=== PATIENT | female | born 1960 | race Caucasian/White ===

== ENCOUNTER 2017-02-07 17:26 | Observation (INO) | payer OTHER ==
--- NOTE | ~2017-02-07 | EKG ---
PATIENT: DAYRON RIVERA UNIT #: [id number] Ventricular Rate: 78 BPM Atrial Rate: 78 BPM P-R Interval: 174 ms QRS Duration: 78 ms Q-T Interval: 396 ms QTC Calculation(Bezet): 451 ms P [place]: 78 degrees Calculated R [place]: 62 degrees Calculated T [place]: 76 degrees Diagnosis Line: Normal sinus rhythm Diagnosis Line: Right atrial enlargement Diagnosis Line: Poor R wave progression questionable lead position Diagnosis Line: or body habitus Diagnosis Line: Nonspecific ST abnormality Baseline wander Diagnosis Line: Otherwise normal ECG Diagnosis Line: When compared with ECG of 21-SEP-2016 14:34, Diagnosis Line: No significant change was found Diagnosis Line: Confirmed by TORO ANTONIO MD ([id number]) on 02/08/2017 Diagnosis Line: 8:31:32 AM INTERPRETING MD: MARISELA VILLALOBOS
--- NOTE | ~2017-02-07 | HP ---
Unit #: [id number] #: [id number] Patient: DAYRON RIVERA [id number] [address] [address] [id number] I MR#: [id number] NAME: DAYRON RIVERA ROOM: 35009 Age: 56 Sex: F Admission Date: 02/07/2017 : 1960 Attending Physician: Je Roth M.D. Primary Care Physician: Ruby Avitia Aprn HISTORY AND PHYSICAL CHIEF COMPLAINT Chest pain. HISTORY OF PRESENT ILLNESS The patient is a 56-year-old female with history of diabetes, ischemic cardiomyopathy, COPD, presented to the emergency room complaining of the right-sided chest pain. The patient stated the patient was coughing for the last few days and has seen the PCP yesterday and started on Augmentin. The patient stated the patient used to get the intermittent pain but the pain was so severe that she could not take it anymore so she presented to the emergency room for the chest pain. The patient is being admitted for the above reasons. Denies any fever, chills, or trauma. PAST MEDICAL HISTORY 1. History of diabetes. 2. History of foot ulcer with foot infection with osteomyelitis requiring left fourth and fifth toe amputations. 3. Right foot MTP ulcer. 4. Pxz-MK-lgbnoyhrn myocardial infarction. 5. COPD with ongoing tobacco use. 6. Hepatic steatosis. 7. Hepatomegaly. PAST SURGICAL HISTORY 1. . 2. Cholecystectomy. 3. BTL. 4. D and C. 5. Multiple foot surgeries. 6. EGD. HOME MEDICATIONS 1. Aspirin. 2. Metoprolol. 3. Imdur. 4. Calcium. 5. Vitamin. 6. Ferrous sulfate. 7. Pantoprazole. 8. Nitrostat. 9. NovoLog. 10. Claritin. 11. Plavix. 12. Tramadol. Unit #: [id number] #: [id number] Patient: DAYRON RIVERA 13. Touvijay ZuritaoSTAR. ALLERGIES 1. Lisinopril. 2. Bactrim. SOCIAL HISTORY The patient lives with her youngest son. She smokes one-eighth of the pack per day and is trying to quit smoking. Does not drink alcohol. FAMILY HISTORY Positive for coronary artery disease, hypertension, malignancy. REVIEW OF SYSTEMS A 14-point review of systems performed and only pertinent positive findings are described above, remaining are negative. PHYSICAL EXAMINATION VITAL SIGNS: Temperature 98, pulse 79, respiratory rate 20, blood pressure 108/57, saturating 98% at room air. GENERAL: Patient is lying on the bed not in acute distress. HEENT: Atraumatic, normocephalic. Pupils equal, round, and reactive to light and accommodation. Extraocular movements are intact. NECK: Supple. LUNGS: Decreased air entry at the bases. No rhonchi, no wheezing. HEART: Regular rate and rhythm. ABDOMEN: Soft, positive bowel sounds. EXTREMITIES: Clean amputation site of the fourth and fifth toes of the left foot. No ulcers on the foot. NEUROLOGIC: Alert, awake, oriented. No gross focal motor deficit. DIAGNOSTIC STUDIES LABORATORY: pH 7.42, pCO2 of 41, pO2 of 56, bicarb 27, oxygen saturation 85.3. Glucose 205, BUN 21, creatinine 1, sodium 141, potassium 4.2, chloride 108, bicarb 28, calcium 8.6, total protein 6.1, albumin 2.6, AST 17, ALT 15, alkaline phosphatase 105. INR 1. Troponin less than 0.05. WBC 11.7, hemoglobin 12.8, hematocrit 39, platelets 206. IMAGING: Chest x-ray shows portable view of the chest demonstrates pulmonary hyperinflation, hyperlucency and coarse parenchymal markings compatible with underlying emphysema and fibrosis. No acute airspace disease or consolidation. No effusions. Heart and mediastinum unremarkable. CARDIOVASCULAR: EKG shows normal sinus rhythm with a right atrial enlargement and nonspecific ST changes. ASSESSMENT AND PLAN 1. Chest pain. 2. History of bronchitis. 3. History of chronic obstructive pulmonary disease. 4. Hypoxia. PLAN 1. Admit patient as observation with telemetry. 2. Check serial troponins. 3. Echocardiogram. 4. Continue with DuoNeb. Unit #: [id number] #: [id number] Patient: DAYRON RIVERA 5. Repeat the labs again in the morning. 6. Further recommendations will follow. Dictated by Kota Díaz TD: 02/07/2017 20:09 JOB #: [id number] HISTORY AND PHYSICAL Page 1 of 1 X X HISTORY AND PHYSICAL
--- NOTE | ~2017-02-07 | CR72 ---
[facility] A Service of [facility] & [facility] RADIOLOGY TEXT RESULTS PATIENT: DAYRON RIVERA LOCATION: [place] [address] : [birth year] UNIT #: [id number] AGE: [address]: Qing Dunbar MD SEX: F ORDER DR: [id number] [facility] [address] [place], [place] [address] [id number] E MR#: [id number] Acc #: [id number] NAME: DAYRON RIVERA : 1960 SEX: F STUDY DATE/TIME: 02/07/2017 16:18 UNIT: [facility] ROOM: STUDY DESCRIPTION: CR Chest Single View Portable Attending Physician: Caroline Stack M.D. Ordering Physician: Ed Brandan Krishna M.D. Primary Care Physician: Ruby Avitia Aprn MEDICAL IMAGING REPORT This report is preliminary unless electronic signature is present EXAM Portable chest HISTORY Chest pain COMPARISON 09/21/2016 FINDINGS Portable view of the chest demonstrates pulmonary hyperinflation, hyperlucency and coarse parenchymal markings compatible with underlying emphysema and fibrosis. No acute airspace disease or consolidation. No effusions. Heart and mediastinum unremarkable. Osseous structures unremarkable for age. No pneumothorax. Dictated by... Yahaira Graham M.D. THIS IS AN ELECTRONICALLY VERIFIED REPORT Yahaira Graham M.D. at 02/08/2017 5:29 PM MANUELITO/christiane TD: 02/07/2017 18:46 JOB #: [id number] MEDICAL IMAGING REPORT Page 1 of 1 COPY
--- NOTE | ~2017-02-07 | DS ---
Unit #: [id number] #: [id number] Patient: DAYRON RIVERA [id number] [address] [address] [id number] I MR#: [id number] NAME: DAYRON RIVERA ROOM: 55 Age: 56 Sex: F Admission Date: 02/07/2017 : 1960 Discharge Date: 02/09/2017 Attending Physician: Qing Dunbar M.D. Primary Care Physician: Ruby Avitia, Aircraft Body Repairer DISCHARGE SUMMARY DISCHARGE DIAGNOSES 1. Acute chronic obstructive pulmonary disease with exacerbation. 2. Acute bronchitis. 3. Chest pain, atypical, noncardiac secondary to chronic obstructive pulmonary disease. 4. Acute hypoxic respiratory failure. 5. Diabetes mellitus type 1, uncontrolled. 6. Foot ulcer with osteomyelitis, requiring left fourth and fifth toe amputations. 7. History of myocardial infarction. 8. Smoking. 9. Hepatic steatosis. 10. Hepatomegaly. 11. Chronic systolic heart failure, ejection fraction 30%-35%. CONSULTANTS None. PROCEDURES PERFORMED None. DIAGNOSTIC DATA LABORATORY: Glucose 273. Troponins negative. ABG shows pH 7.42, carbon dioxide 41, oxygen 56. IMAGING: Chest x-ray shows emphysema. No infiltrates. ALLERGIES Lisinopril, sulfamethoxazole, trimethoprim. DISCHARGE MEDICATIONS 1. Albuterol nebulizer q.4 h. p.r.n. shortness of breath. 2. Neurontin 100 mg at bedtime. 3. Claritin 10 mg daily. 4. Metoprolol 50 mg p.o. b.i.d. 5. Lipitor 40 mg daily. 6. Insulin Toujeo 35 units subcutaneous q.8 a.m. 7. Humalog sliding scale morning and evening. 8. Ferrous sulfate 325 mg p.o. daily. 9. Reglan 5 mg p.o. b.i.d. 10. Aspirin 81 mg daily. 11. Plavix 75 mg daily. 12. Protonix 40 mg daily. 13. Imdur 30 mg daily. Unit #: [id number] #: [id number] Patient: DAYRON RIVERA 14. Nitrostat 0.4 mg sublingual p.r.n. chest pain. 15. Vitamin D 2000 units p.o. weekly. 16. Symbicort 160 mcg 1 puff inhalation b.i.d. HOSPITAL COURSE The patient is a 56 year old admitted because of chest pain. Acute chronic obstructive pulmonary disease with exacerbation with acute bronchitis: The patient was started on duo-nebs. Prednisone was given. Her breathing is better. The patient will be discharged on albuterol and Symbicort. No prednisone because her lungs are better, no wheezing. Also, her sugars are uncontrolled on prednisone. Chest pain: Atypical, secondary to chronic obstructive pulmonary disease. Troponins are negative. EKG normal. Diabetes mellitus type 1: Uncontrolled. Continue with insulin. She has peripheral neuropathy and gastroparesis. Acute hypoxic respiratory failure from chronic obstructive pulmonary disease: Resolved. Smoking: Advised to quit. DISPOSITION The patient will be discharged home. FOLLOWUP Follow up with family physician in one week time. Dictated by... Kota Ding/inocente TD: 02/09/2017 11:21 JOB #: [id number] CC: Ruby Avitia Aprn DISCHARGE SUMMARY Page 1 of 1 X Qing Dunbar MD X DISCHARGE SUMMARY
[2017-02-07 15:48] LABS: BASOPHIL# 0.1 X10e3 (0-0.3); EOSINOPHIL# 0.2 X10e3 (0-0.7); EOSINOPHIL% 1.5 % (0.0-7.0); HEMOGLOBIN 12.8 gm/dL (12.0-16.0); LYMPHOCYTE% 26.1 % (17.0-45.0); MEAN CELL VOLUME 87.4 FL (83-96); MEAN CORPUSCULAR HEMOGLOBIN 28.8 PG (28-34); MEAN PLATELET VOLUME 8.3 FL (6.5-11.5); MONOCYTE# 0.9 X10e3 (0-1.0); NEUTROPHIL# 7.4 X10e3 (1.5-7.1); NEUTROPHIL% 63.4 % (40-75); PLATELET COUNT 296 X10e3 (140-420); RED BLOOD COUNT 4.46 X10e (3.90-5.30); RED CELL DISTRIBUTION WIDTH 12.7 % (11.0-15.5); WHITE BLOOD COUNT 11.7 X10e3 (4.0-10.5)
[2017-02-07 15:54] LABS: DIFF IND NO
[2017-02-07 15:55] LABS: PARTIAL THROMBOPLASTIN TIME 25.2 SECONDS (23.5-31.3); PROTHROMBIN TIME (PATIENT) 10.9 SECONDS (9.6-11.5)
[2017-02-07 16:08] LABS: ALBUMIN SERUM 2.6 g/dL (3.5-5.0); BILIRUBIN, DIRECT 0.1 mg/dL (0.0-0.2); BILIRUBIN,INDIRECT 0.3 mg/dL (0.0-0.9); BILIRUBIN,TOTAL 0.4 mg/dL (0.2-2.0); CALCIUM SERUM 8.6 mg/dL (8.4-10.2); GLOM FILT RATE Estimated 63.8 mL/min (>60); POTASSIUM 4.2 mmol/L (3.5-5.1); PROTEIN TOTAL SERUM 6.1 g/dL (6.0-8.3)
[2017-02-07 16:54] LABS: POC - CKMB <1.0 ng/mL (0.0-7.9); POC - TROPONIN <0.05 ng/mL (<=0.05)
[~2017-02-07 17:26] MED LIST: ACETAMINOPHEN PO; ACETAMINOPHEN500 M4 PO; ACID CONTROL20 MG PO; ADVIL200 M2 PO; ALBUTEROL17 G1 IH; ALBUTEROL17 GM; ALBUTEROL17 GM INH; ASPIRIN EC81 M1 PO; ASPIRIN81 MG PO; ATARAX PO; B COMPLEX1 CA1 PO; BACTRIM DS TABL1 TA1 PO; BACTROBAN22 GM TOP; CALCIUM 5001 TAB PO; CEPHALEXIN500 M1 PO; CIPRO PO; CLARITIN10 M3 PO; CLEOCIN HCL300 M1 PO; COLACE 100 MG PO; DOXYCYCLINE HY100 M3 PO; FERRO-TIME325 MG PO; FERROUS SULFATE PO; FLEXERIL PO; FLEXERIL10 M1 PO; FLEXERIL10 MG PO; FUROSEMIDE40 MG PO; GABAPENTIN300 M2 PO; HUMALOG100 U/M2; HUMALOG100 U/M2 SUBQ; HUMALOG100 U/ML; HUMULIN 70100 UNITS/ INJ; HUMULIN N VIAL SUBQ; HUMULIN N100 U/ML SQ; HUMULIN N100 U/ML SUBQ; HUMULIN R100 U/ML; HUMULIN R100 U/ML SUBQ; IBUPROFEN100 MG PO; IMDUR-ER30 M1 PO; IRON TABLETS1 TAB PO; IRON325 ( 652 PO; KEFLEX PO; KEFLEX500 M1 PO; KEFLEX500 MG PO; KETOPROFEN PO; LANTUS100 U/ML SUBQ; LANTUS100 UNITS/ SUBQ; LASIX PO; LEVAQUIN750 MG PO; LISINOPRIL20 MG PO; MEDROL PO; METOPROLOL TART25 MG PO; MORGIDOX100 MG PO; NAPROSYN500 MG PO; NAPROXEN PO; NEURONTIN 300 MG PO; NEURONTIN300 MG PO; NICOTINE PATCH 21 MG TD; NICOTINE T1 PATCH .2 TOP; NICOTINE TRANSD14 MG EXT; NITROGLYGERIN0.4 MG SL; NITROSTAT0.4 MG SL; NOVOLIN N100 U/ML; NOVOLIN N100 U/ML INJ; NOVOLIN N100 U/ML SUBQ; NOVOLIN N100 UNIT/1 SQ; NOVOLIN N100 UNIT/1 SUBQ; NOVOLIN R100 U/ML; NOVOLIN R100 U/ML INJ; NOVOLIN R100 U/ML SUBQ; NOVOLIN R100 UNITS/ INJ; NOVOLIN R100 UNITS/ SUBQ; NOVOLOG100 U/M2 SUBQ; NOVOLOG100 U/ML; NOVOLOG100 U/ML SUBQ; NOVOLOG100 UNITS/ INJ; PANTOPRAZOLE SO40 MG PO; PERCOCET PO; PLAVIX PO; POLYSPORIN15 GM EXT; PREDNISONE PO; REGLAN5 MG PO; TOPROL XL50 MG PO; TOUJEO SOL300 UNIT/1 SUBQ; TRAMADOL HCL50 M1 PO; TYLENOL 325 MG PO; TYLENOL325 M1 PO; ULTRAM PO; VANCOMYCIN IV; VIBRAMYCIN100 M1 PO; VICODIN 5/500 T1 TAB PO; VIT B-12 PO; VITAMIN D1000 UNIT PO; VITAMIN D2000 UNIT PO; ZANTAC PO; ZETIA PO; ZITHROMAX; ZOCOR PO; ZOCOR20 MG PO; ZOFRAN ODT4 MG PO
[2017-02-07 17:29] LABS: POC - TROPONIN <0.05 ng/mL (<=0.05)
[2017-02-07 19:30] LABS: ARTERIAL BLD GAS O2 SATURATION 85.3 % (90.0-100.0); ARTERIAL BLOOD GAS ART SITE RIGHT BRACHIAL; ARTERIAL BLOOD GAS CARBOXY HB 4.9 %sat (0.0-9.0); ARTERIAL BLOOD GAS DELIVERY ROOM AIR; ARTERIAL BLOOD GAS HCO3 27.1 mmol/L; ARTERIAL BLOOD GAS MET HB 0.7 %sat (0.0-2.0); ARTERIAL BLOOD GAS PCO2 41.2 mmHg (35.0-45.0); ARTERIAL BLOOD GAS pH 7.426 (7.350-7.450); ARTERIAL DRAW? YES
[2017-02-07] MEDS ORDERED: HUMALOG100 UNIT/1 SUBQ (20:48)
[2017-02-08] MEDS ORDERED: LIPITOR40 MG PO (00:15)
[2017-02-08] MEDS ORDERED: REGLAN5 MG PO (00:15)
[2017-02-08] MEDS ORDERED: NEURONTIN100 MG PO (00:16)
[2017-02-08] MEDS ORDERED: ALBUTEROL2.5 MG/3 M NEB (00:21)
[2017-02-08 02:38] LABS: HEMATOCRIT 36.7 % (35.0-45.0); MEAN CELL VOLUME 89.2 FL (83-96); MEAN CORPUSCULAR HEMOGLOBIN 29.1 PG (28-34); MEAN CORPUSCULAR HGB CONC 32.6 g/dL (30-36); MEAN PLATELET VOLUME 8.5 FL (6.5-11.5); RED BLOOD COUNT 4.12 X10e (3.90-5.30); RED CELL DISTRIBUTION WIDTH 12.8 % (11.0-15.5); WHITE BLOOD COUNT 8.4 X10e3 (4.0-10.5)
[2017-02-08 03:22] LABS: BUN/CREATININE RATIO 20.9; CALCIUM SERUM 8.4 mg/dL (8.4-10.2); CREATININE SERUM 1.1 mg/dL (0.6-1.4); GLOM FILT RATE Estimated 56.9 mL/min (>60); POTASSIUM 4.1 mmol/L (3.5-5.1)
[2017-02-09] MEDS ORDERED: SYMBICORT INH (11:53)
== END 2017-02-09 12:58 | disposition home or self-care (01) ==
LOC: CED 17:26 → CEDOF 19:35 → C5B 22:24
PROVIDERS: Emergency Medicine; Internal Medicine
DX: J44.1 Chronic obstructive pulmonary disease with (acute) exacerbation (principal); J20.9 Acute bronchitis, unspecified; J44.0 Chronic obstructive pulmonary disease with (acute) lower respiratory infection; R07.89 Other chest pain; J96.01 Acute respiratory failure with hypoxia; E10.65 Type 1 diabetes mellitus with hyperglycemia; E10.42 Type 1 diabetes mellitus with diabetic polyneuropathy; Z79.4 Long term (current) use of insulin; I50.22 Chronic systolic (congestive) heart failure; Z89.422 Acquired absence of other left toe(s); I25.2 Old myocardial infarction; F17.200 Nicotine dependence, unspecified, uncomplicated; R16.0 Hepatomegaly, not elsewhere classified; K76.0 Fatty (change of) liver, not elsewhere classified
CPT/HCPCS: 36415; 36600; 71010; 80048; 80076; 82553; 82803; 82947; 84484; 85025; 85027; 85610; 85730; 93005; 93306; 94640; 94664; 94760; 96372; 99285; G0378; J1650; J1815

== ENCOUNTER 2017-02-27 12:29 | Emergency (ER) | payer OTHER ==
[~2017-02-27 12:29] MED LIST changes: +ALBUTEROL2.5 MG/3 M NEB; +HUMALOG100 UNIT/1 SUBQ; +LIPITOR40 MG PO; +NEURONTIN100 MG PO; +SYMBICORT INH
== END 2017-02-27 13:32 | disposition home or self-care (01) ==
LOC: CFTX 12:29 → CED 12:29 → CFTX 13:27
DX: S61.012A Laceration without foreign body of left thumb without damage to nail, initial encounter (principal); E11.9 Type 2 diabetes mellitus without complications; Z79.4 Long term (current) use of insulin; I10 Essential (primary) hypertension; K21.9 Gastro-esophageal reflux disease without esophagitis; Z88.2 Allergy status to sulfonamides; Z88.8 Allergy status to other drugs, medicaments and biological substances; Z79.899 Other long term (current) drug therapy; W01.0XXA Fall on same level from slipping, tripping and stumbling without subsequent striking against object, initial encounter; Y92.009 Unspecified place in unspecified non-institutional (private) residence as the place of occurrence of the external cause
CPT/HCPCS: 12001; 99283

== ENCOUNTER 2017-04-21 15:26 | Emergency (ER) | payer OTHER ==
[~2017-04-21] VITALS: Ht 175.3 cm; Wt 86.2 kg
--- NOTE | ~2017-04-21 | CR127 ---
[facility] A Service of [facility] & [facility] RADIOLOGY TEXT RESULTS PATIENT: DAYRON RIVERA LOCATION: [facility] : [birth year] UNIT #: [id number] AGE: [address]: Ana Maria Jeffries APRN SEX: F ORDER DR: [id number] [facility] [address] [facility]. [place], [place] [address] [id number] E MR#: [id number] Acc #: [id number] NAME: DAYRON RIVERA : 1960 SEX: F STUDY DATE/TIME: 04/21/2017 17:11 UNIT: [facility] ROOM: STUDY DESCRIPTION: CR Foot Complete Min 3 View Rt Attending Physician: Ana Maria Jeffries A.P.R.N. Ordering Physician: Ana Maria Jeffries A.P.R.N. Primary Care Physician: Ruby Avitia Aprn MEDICAL IMAGING REPORT This report is preliminary unless electronic signature is present EXAM Right foot, 3 views. HISTORY Foot pain for 3 weeks. Twisting injury yesterday. FINDINGS Three views of the right foot demonstrate moderate degenerative arthritis at the first MTP joint. Moderate soft tissue swelling of the forefoot. Small plantar calcaneal spur. Partial absence of the distal metaphysis, proximal phalanx third digit, could be secondary to chronic post-traumatic change or bone resorption or destruction. Correlation to physical exam findings and history in this regard is recommended. No displaced fracture. IMPRESSION 1. Mild soft tissue swelling in the forefoot. 2. No fracture. 3. Partial bony absence of the distal metaphysis of the proximal phalanx of the third toe could be chronic and secondary to old trauma. Considerations also include bony destruction but there is no overlying soft tissue swelling. Correlation with the patient's history and physical exam findings is recommended. Dictated by... Arnulfo Chaves M.D. THIS IS AN ELECTRONICALLY VERIFIED REPORT Arnulfo Chaves M.D. at 04/22/2017 6:07 PM DFLinda/susan TD: 04/21/2017 23:24 [facility] A Service of [facility] & [facility] RADIOLOGY TEXT RESULTS PATIENT: DAYRON RIVERA LOCATION: [facility] : [birth year] UNIT #: [id number] AGE: [address]: Ana Maria Jeffries APRN SEX: F ORDER DR: JOB #: [id number] MEDICAL IMAGING REPORT Page 1 of 1 COPY
--- NOTE | ~2017-04-21 | CR21 ---
[facility] A Service of [facility] & [facility] RADIOLOGY TEXT RESULTS PATIENT: DAYRON RIVERA LOCATION: [facility] : [birth year] UNIT #: [id number] AGE: [address]: Ana Maria Jeffries APRN SEX: F ORDER DR: [id number] [facility] [address] [place], [place] [address] [id number] E MR#: [id number] Acc #: [id number] NAME: DAYRON RIVERA : 1960 SEX: F STUDY DATE/TIME: 04/21/2017 17:10 UNIT: [facility] ROOM: STUDY DESCRIPTION: CR Ankle Min 3 Views Rt Attending Physician: Ana Maria Jeffries A.P.R.N. Ordering Physician: Ana Maria Jeffries A.P.R.N. Primary Care Physician: Ruby Avitia Aprn MEDICAL IMAGING REPORT This report is preliminary unless electronic signature is present EXAM Right ankle 3 views HISTORY Foot and ankle pain and swelling for 3 weeks. Twisting injury today. FINDINGS Three views of the right ankle demonstrate soft tissue swelling about the ankle, greater over the lateral malleolus. Bone alignment is normal. Mild generalized demineralization. Mild degenerative changes in the ankle. Small accessory ossicle adjacent to the tip of the medial malleolus. Small plantar calcaneal spur. IMPRESSION 1. No fracture. 2. Soft tissue swelling about the ankle. 3. Mild degenerative changes. Dictated by... Arnulfo Chaves M.D. THIS IS AN ELECTRONICALLY VERIFIED REPORT Arnulfo Chaves M.D. at 04/22/2017 6:07 PM EMILEE/jeyson TD: 04/21/2017 23:19 JOB #: [id number] MEDICAL IMAGING REPORT Page 1 of 1 COPY
== END 2017-04-21 18:50 | disposition home or self-care (01) ==
LOC: CFTX 15:26 → CED 15:26 → CFTX 18:22
DX: M79.671 Pain in right foot (principal); I25.2 Old myocardial infarction; E11.9 Type 2 diabetes mellitus without complications; Z79.4 Long term (current) use of insulin; I10 Essential (primary) hypertension; E78.5 Hyperlipidemia, unspecified; F17.210 Nicotine dependence, cigarettes, uncomplicated; Z98.890 Other specified postprocedural states; Z88.2 Allergy status to sulfonamides; Z88.8 Allergy status to other drugs, medicaments and biological substances; Z78.0 Asymptomatic menopausal state
CPT/HCPCS: 73610; 73630; 99283

== ENCOUNTER 2017-04-27 15:21 | Emergency (ER) | payer OTHER ==
[~2017-04-27] VITALS: Ht 175.3 cm; Wt 86.2 kg
[2017-04-27 17:00] LABS: URINE SOURCE CLEAN CATCH
[2017-04-27 17:06] LABS: URINE APPEARANCE CLEAR; URINE BILIRUBIN NEG (NEG); URINE BLOOD 1+ (NEG); URINE COLOR YELLOW; URINE GLUCOSE >1000 MG/DL (NEG); URINE KETONE NEG (NEG); URINE LEUKOCYTE ESTERASE NEG (NEG); URINE NITRATE NEG (NEG); URINE PH 5.5 (5-8); URINE PROTEIN 3+ (NEG); URINE SPECIFIC GRAVITY 1.024 (1.003-1.035); URINE UROBILINOGEN 0.2 MG/DL (NEG)
[2017-04-27 17:10] LABS: URINE BACTERIA AUWI NEG (NEGATIVE); URINE SQUAMOUS EPITHELIAL CELL OCC /[HPF]
[2017-04-27 17:11] LABS: BASOPHIL# 0.2 X10e3 (0-0.3); BASOPHIL% 1.4 % (0-2.5); EOSINOPHIL# 0.2 X10e3 (0-0.7); EOSINOPHIL% 1.6 % (0.0-7.0); LYMPHOCYTE# 3.4 X10e3 (1.0-3.5); LYMPHOCYTE% 28.4 % (17.0-45.0); MEAN CELL VOLUME 89.4 FL (83-96); MEAN CORPUSCULAR HEMOGLOBIN 29.1 PG (28-34); MEAN CORPUSCULAR HGB CONC 32.6 g/dL (30-36); MEAN PLATELET VOLUME 8.7 FL (6.5-11.5); MONOCYTE# 0.8 X10e3 (0-1.0); MONOCYTE% 6.5 % (3.0-12.0); NEUTROPHIL# 7.3 X10e3 (1.5-7.1); NEUTROPHIL% 62.1 % (40-75); RED BLOOD COUNT 4.47 X10e (3.90-5.30); RED CELL DISTRIBUTION WIDTH 13.9 % (11.0-15.5); WHITE BLOOD COUNT 11.8 X10e3 (4.0-10.5)
[2017-04-27 17:14] LABS: CULTURE INDICATED? NO
[2017-04-27 17:27] LABS: DIFF IND NO; PLATELET COUNT 286 X10e3 (140-420)
[2017-04-27 17:53] LABS: ALBUMIN SERUM 2.7 g/dL (3.5-5.0); BILIRUBIN, DIRECT 0.1 mg/dL (0.0-0.2); BILIRUBIN,INDIRECT 0.2 mg/dL (0.0-0.9); BILIRUBIN,TOTAL 0.3 mg/dL (0.2-2.0); CALCIUM SERUM 8.4 mg/dL (8.4-10.2); GLOM FILT RATE Estimated 63.8 mL/min (>60); POTASSIUM 4.9 mmol/L (3.5-5.1); PROTEIN TOTAL SERUM 5.9 g/dL (6.0-8.3)
== END 2017-04-27 19:42 | disposition home or self-care (01) ==
LOC: CED 15:21
PROVIDERS: Emergency Medicine
DX: E11.65 Type 2 diabetes mellitus with hyperglycemia (principal); I25.10 Atherosclerotic heart disease of native coronary artery without angina pectoris; I10 Essential (primary) hypertension; Z98.51 Tubal ligation status; Z90.49 Acquired absence of other specified parts of digestive tract; F17.210 Nicotine dependence, cigarettes, uncomplicated; Z79.82 Long term (current) use of aspirin; Z79.4 Long term (current) use of insulin; Z79.899 Other long term (current) drug therapy; Z88.2 Allergy status to sulfonamides; Z88.8 Allergy status to other drugs, medicaments and biological substances
CPT/HCPCS: 36415; 80048; 80076; 81003; 82150; 82947; 83690; 84703; 85025; 96361; 96374; 96375; 99284; J2405

== ENCOUNTER 2017-05-18 12:36 | Emergency (ER) | payer OTHER ==
[~2017-05-18] VITALS: Ht 175.3 cm; Wt 83.9 kg
--- NOTE | ~2017-05-18 | CR219 ---
[facility] A Service of [facility] & [facility] RADIOLOGY TEXT RESULTS PATIENT: DAYRON RIVERA LOCATION: [facility] : [birth year] UNIT #: [id number] AGE: [address]: Tonya Casas APRN SEX: F ORDER DR: [id number] [facility] [address] [place], [place] [address] [id number] E MR#: [id number] Acc #: [id number] NAME: DAYRON RIVERA : 1960 SEX: F STUDY DATE/TIME: 05/18/2017 15:20 UNIT: [facility] ROOM: STUDY DESCRIPTION: CR Sacrum and Coccyx Min 2 Vie Attending Physician: Tonya Casas A.P.R.N. Ordering Physician: Ed Doctor [id number] [facility] Primary Care Physician: Ruby Avitia Aprn MEDICAL IMAGING REPORT This report is preliminary unless electronic signature is present EXAM Sacrum and coccyx HISTORY Fall 2 weeks ago with pain in near sacrum and near coccyx. FINDINGS AP and lateral views of the sacrum and coccyx were obtained. The bones appear normal. There is no fracture visible. IMPRESSION Normal sacrum and coccyx. Dictated by... Babak Ellison M.D. THIS IS AN ELECTRONICALLY VERIFIED REPORT Babak Ellison M.D. at 05/19/2017 9:19 AM LANCE/lino TD: 05/19/2017 03:31 JOB #: [id number] MEDICAL IMAGING REPORT Page 1 of 1 COPY
== END 2017-05-18 16:21 | disposition home or self-care (01) ==
LOC: CFTX 12:36 → CED 12:36 → CFTX 14:40
DX: S30.0XXA Contusion of lower back and pelvis, initial encounter (principal); I25.2 Old myocardial infarction; E10.9 Type 1 diabetes mellitus without complications; Z79.4 Long term (current) use of insulin; J45.909 Unspecified asthma, uncomplicated; D64.9 Anemia, unspecified; Z88.2 Allergy status to sulfonamides; Z88.8 Allergy status to other drugs, medicaments and biological substances; W19.XXXA Unspecified fall, initial encounter; Y92.9 Unspecified place or not applicable
CPT/HCPCS: 72220; 99283

== ENCOUNTER 2017-06-23 20:55 | Emergency (ER) | payer OTHER ==
--- NOTE | ~2017-06-23 | EKG ---
PATIENT: DAYRON RIVERA UNIT #: [id number] Ventricular Rate: 77 BPM Atrial Rate: 77 BPM P-R Interval: 186 ms QRS Duration: 84 ms Q-T Interval: 410 ms QTC Calculation(Bezet): 463 ms P [place]: 79 degrees Calculated R [place]: 29 degrees Calculated T [place]: 51 degrees Diagnosis Line: Sinus rhythm with occasional Premature ventricular Diagnosis Line: complexes Diagnosis Line: Possible Left atrial enlargement Diagnosis Line: Septal infarct (cited on or before 23-JUN-2017) Diagnosis Line: Abnormal ECG Diagnosis Line: When compared with ECG of 07-FEB-2017 14:58, Diagnosis Line: Premature ventricular complexes are now Present Diagnosis Line: Confirmed by TORO ANTONIO MD ([id number]) on 06/24/2017 Diagnosis Line: 3:47:20 PM INTERPRETING MD: MARISELA VILLALOBOS
[2017-06-23 22:45] LABS: URINE SOURCE CLEAN CATCH
[2017-06-23 22:52] LABS: URINE APPEARANCE CLEAR; URINE BILIRUBIN NEG (NEG); URINE BLOOD TRACE (NEG); URINE COLOR YELLOW; URINE GLUCOSE NEG (NEG); URINE KETONE NEG (NEG); URINE LEUKOCYTE ESTERASE NEG (NEG); URINE NITRATE NEG (NEG); URINE PH 5.5 (5-8); URINE PROTEIN 3+ (NEG); URINE SPECIFIC GRAVITY 1.011 (1.003-1.035); URINE UROBILINOGEN 0.2 MG/DL (NEG)
[2017-06-23 22:54] LABS: URBCS1 AUWI 0-2 /[HPF] (0-2); URINE BACTERIA AUWI NEG (NEGATIVE); URINE SQUAMOUS EPITHELIAL CELL NONE SEEN /[HPF]; UWBCS1 AUWI 0-2 (0-5)
[2017-06-23 22:56] LABS: CULTURE INDICATED? NO
[2017-06-23 23:54] LABS: BASOPHIL# 0.1 X10e3 (0-0.3); BASOPHIL% 1.5 % (0-2.5); EOSINOPHIL# 0.2 X10e3 (0-0.7); EOSINOPHIL% 2.2 % (0.0-7.0); HEMATOCRIT 40.9 % (35.0-45.0); HEMOGLOBIN 13.7 gm/dL (12.0-16.0); LYMPHOCYTE# 2.6 X10e3 (1.0-3.5); LYMPHOCYTE% 28.4 % (17.0-45.0); MEAN CELL VOLUME 86.7 FL (83-96); MEAN CORPUSCULAR HEMOGLOBIN 29.1 PG (28-34); MEAN CORPUSCULAR HGB CONC 33.5 g/dL (30-36); MEAN PLATELET VOLUME 8.1 FL (6.5-11.5); MONOCYTE# 0.7 X10e3 (0-1.0); MONOCYTE% 7.2 % (3.0-12.0); NEUTROPHIL# 5.6 X10e3 (1.5-7.1); NEUTROPHIL% 60.7 % (40-75); PLATELET COUNT 320 X10e3 (140-420); RED BLOOD COUNT 4.72 X10e (3.90-5.30); RED CELL DISTRIBUTION WIDTH 13.2 % (11.0-15.5); WHITE BLOOD COUNT 9.2 X10e3 (4.0-10.5)
[2017-06-23 23:58] LABS: POC - CKMB 1.2 ng/mL (0.0-7.9); POC - TROPONIN <0.05 ng/mL (<=0.05)
[2017-06-23 23:59] LABS: DIFF IND NO
[2017-06-24 00:17] LABS: ALBUMIN SERUM 2.6 g/dL (3.5-5.0); BILIRUBIN, DIRECT 0.1 mg/dL (0.0-0.2); BILIRUBIN,INDIRECT 0.1 mg/dL (0.0-0.9); BILIRUBIN,TOTAL 0.2 mg/dL (0.2-2.0); BUN/CREATININE RATIO 21.11; CALCIUM SERUM 8.8 mg/dL (8.4-10.2); CREATININE SERUM 0.9 mg/dL (0.6-1.4); GLOM FILT RATE Estimated 72.5 mL/min (>60); POTASSIUM 3.9 mmol/L (3.5-5.1); PROTEIN TOTAL SERUM 5.7 g/dL (6.0-8.3)
== END 2017-06-24 01:04 | disposition home or self-care (01) ==
LOC: CED 20:55
PROVIDERS: Emergency Medicine
DX: E11.649 Type 2 diabetes mellitus with hypoglycemia without coma (principal); I50.9 Heart failure, unspecified; I25.2 Old myocardial infarction; J44.9 Chronic obstructive pulmonary disease, unspecified; F17.200 Nicotine dependence, unspecified, uncomplicated; Z90.49 Acquired absence of other specified parts of digestive tract; Z88.2 Allergy status to sulfonamides; Z88.8 Allergy status to other drugs, medicaments and biological substances; Z79.4 Long term (current) use of insulin; Z79.82 Long term (current) use of aspirin; Z79.899 Other long term (current) drug therapy
CPT/HCPCS: 36415; 80048; 80076; 81003; 82553; 82947; 84484; 85025; 93005; 99284